=== PATIENT | female | born 1970 | race Hispanic/Latino ===

== ENCOUNTER 2021-03-18 10:05 | Inpatient (IN) | payer OTHER ==
[~2021-03-18] VITALS: Ht 152.4 cm; Wt 68.0 kg
[2021-03-18] MEDS ORDERED: SODIUM CHLORIDE 0.9% 1000ML 1,000 ML IV STA (10:22)
[2021-03-18] MEDS ORDERED: PANTOPRAZOLE 40 MG 10ML VIAL IV STA (10:22)
[2021-03-18 10:44] LABS: BASOPHILS # (AUTO) 0.1 (0.0-0.1); BASOPHILS % 1.1 % (0.0-1.0); EOSINOPHILS # (AUTO) 0.1 (0.0-0.4); EOSINOPHILS % 1.6 % (0.0-6.0); LYMPHOCYTES # (AUTO) 1.9 (1.0-3.2); LYMPHOCYTES % 33.1 % (18.0-39.1); MEAN CORPUSCULAR HEMOGLOBIN 14.1 pg (28-32); MEAN CORPUSCULAR HGB CONC 23.6 g/dL (31-35); MEAN CORPUSCULAR VOLUME 59.8 fL (81-99); MONOCYTES # (AUTO) 0.5 (0.2-0.8); MONOCYTES % 8.4 % (4.4-11.3); NEUTROPHILS # (AUTO) 3.2 (2.1-6.9); NEUTROPHILS % 55.6 % (38.7-80.0); PLATELET COUNT 366 x10e3/uL (140-360); RED BLOOD COUNT 3.61 x10e6/uL (3.6-5.1); RED CELL DISTRIBUTION WIDTH 22.4 % (11.7-14.4)
[2021-03-18 10:52] LABS: HEMATOCRIT 21.6 % (34.2-44.1); HEMOGLOBIN 5.1 g/dL (12.0-16.0)
[2021-03-18 11:09] LABS: ALANINE AMINOTRANSFERASE 13 IU/L (0-55); ALBUMIN/GLOBULIN RATIO 1.1 (0.8-2.0); ALKALINE PHOSPHATASE 103 IU/L (40-150); ANION GAP 11.7 mmol/L (8-16); BLOOD UREA NITROGEN 14 mg/dL (7-26); BUN/CREATININE RATIO 21 (6-25); CALCIUM 8.7 mg/dL (8.4-10.2); CARBON DIOXIDE 25 mmol/L (22-29); CHLORIDE 106 mmol/L (98-107); CREATININE, SERUM 0.67 mg/dL (0.57-1.11); EST GLOMERULAR FILTRATION RATE > 60 ML/MIN (60-); GLUCOSE 114 mg/dL (74-118); POTASSIUM 3.7 mmol/L (3.5-5.1); SODIUM 139 mmol/L (136-145)
[2021-03-18] MEDS ORDERED: ONDANSETRON HCL INJ 2MG/ML 2ML 2 MG/ML VIAL IV PRN (11:15)
[2021-03-18 11:29] LABS: PROTHROMBIN TIME 13.8 seconds (11.9-14.5)
[2021-03-18 11:30] LABS: PARTIAL THROMBOPLASTIN TIME 28.6 seconds (23.8-35.5)
[2021-03-18] MEDS: SODIUM CHLORIDE 0.9% 1000ML 1,000 ML IV SCH ×2 (12:35→21:15)
[2021-03-18] MEDS ORDERED: SODIUM CHLORIDE 0.9% 250ML 250 ML ONE (13:31)
[2021-03-18 13:52] VITALS: BP 132/76
[2021-03-18 13:56] VITALS: BP 132/76
[2021-03-18 14:03] VITALS: BP 136/67
[2021-03-18 17:22] VITALS: BP 116/61
[2021-03-18 20:57] VITALS: BP 128/61
[2021-03-18 22:01] VITALS: BP 128/61
[2021-03-19] VITALS (8 sets, daily range): BP systolic 109–132; BP diastolic 47–57
[2021-03-19 00:48] LABS: % IRON SATURATION 2 % (15-50); IRON 11 ug/dL (50-170); TOTAL IRON BINDING CAPACITY 574 ug/dL (261-478); TRANSFERRIN 410 mg/dL (180-382)
[2021-03-19 01:06] LABS: FERRITIN < 1.00 ng/mL (4.63-204.00)
[2021-03-19] MEDS ORDERED: CYANOCOBALAMIN INJ 1,000 MCG/ML VIAL IM ONE (01:30)
[2021-03-19 05:37] LABS: BASOPHILS # (AUTO) 0.1 (0.0-0.1); BASOPHILS % 1.2 % (0.0-1.0); EOSINOPHILS # (AUTO) 0.1 (0.0-0.4); HEMATOCRIT 28.3 % (34.2-44.1); HEMOGLOBIN 7.8 g/dL (12.0-16.0); LYMPHOCYTES # (AUTO) 2.4 (1.0-3.2); LYMPHOCYTES % 35.9 % (18.0-39.1); MEAN CORPUSCULAR HEMOGLOBIN 18.4 pg (28-32); MEAN CORPUSCULAR HGB CONC 27.6 g/dL (31-35); MEAN CORPUSCULAR VOLUME 66.6 fL (81-99); MONOCYTES # (AUTO) 0.6 (0.2-0.8); MONOCYTES % 9.8 % (4.4-11.3); NEUTROPHILS # (AUTO) 3.3 (2.1-6.9); NEUTROPHILS % 50.8 % (38.7-80.0); PLATELET COUNT 302 x10e3/uL (140-360); RED BLOOD COUNT 4.25 x10e6/uL (3.6-5.1); RED CELL DISTRIBUTION WIDTH 29.1 % (11.7-14.4)
[2021-03-19 06:00] LABS: ALANINE AMINOTRANSFERASE 11 IU/L (0-55); ALBUMIN 3.5 g/dL (3.5-5.0); ALKALINE PHOSPHATASE 89 IU/L (40-150); BLOOD UREA NITROGEN 9 mg/dL (7-26); BUN/CREATININE RATIO 14 (6-25); CALCIUM 8.3 mg/dL (8.4-10.2); CARBON DIOXIDE 27 mmol/L (22-29); CHLORIDE 106 mmol/L (98-107); CREATININE, SERUM 0.64 mg/dL (0.57-1.11); EST GLOMERULAR FILTRATION RATE > 60 ML/MIN (60-); GLUCOSE 92 mg/dL (74-118); SODIUM 140 mmol/L (136-145)
[2021-03-19 06:21] LABS: % IRON SATURATION 4 % (15-50); IRON 18 ug/dL (50-170); TOTAL IRON BINDING CAPACITY 508 ug/dL (261-478); TRANSFERRIN 363 mg/dL (180-382)
[2021-03-19 06:44] LABS: FERRITIN < 1.00 ng/mL (4.63-204.00)
[2021-03-19] MEDS: SODIUM CHLORIDE 0.9% 1000ML 1,000 ML IV SCH ×2 (07:15→17:15)
[2021-03-19] MEDS: CYANOCOBALAMIN INJ 1,000 MCG/ML VIAL IM SCH (09:00)
[2021-03-19] MEDS: IRON SUCROSE 100 MG in SODIUM CHLORIDE 0.9% 100 ML 100 ML IV SCH (09:00)
[2021-03-19] MEDS: PANTOPRAZOLE 40 MG 10ML VIAL IV SCH (09:00)
[2021-03-19 11:55] LABS: BAND NEUTROPHILS % (MANUAL) 3 %; EOSINOPHILS % (MANUAL) 2 % (0-7); LYMPHOCYTES % (MANUAL) 33 % (19-48); MONOCYTES % (MANUAL) 7 % (3.4-9.0); NEUTROPHILS % (MANUAL) 55 % (40-74)
[2021-03-20] VITALS (7 sets, daily range): BP systolic 108–134; BP diastolic 53–63
[2021-03-20] MEDS: SODIUM CHLORIDE 0.9% 1000ML 1,000 ML IV SCH ×2 (04:03→16:56)
[2021-03-20 05:53] LABS: BASOPHILS # (AUTO) 0.1 (0.0-0.1); BASOPHILS % 1.3 % (0.0-1.0); EOSINOPHILS # (AUTO) 0.2 (0.0-0.4); EOSINOPHILS % 2.7 % (0.0-6.0); HEMATOCRIT 29.7 % (34.2-44.1); HEMOGLOBIN 7.9 g/dL (12.0-16.0); LYMPHOCYTES # (AUTO) 2.6 (1.0-3.2); LYMPHOCYTES % 41.4 % (18.0-39.1); MEAN CORPUSCULAR HGB CONC 26.6 g/dL (31-35); MEAN CORPUSCULAR VOLUME 67.8 fL (81-99); MONOCYTES # (AUTO) 0.6 (0.2-0.8); MONOCYTES % 9.6 % (4.4-11.3); NEUTROPHILS # (AUTO) 2.9 (2.1-6.9); NEUTROPHILS % 44.7 % (38.7-80.0); PLATELET COUNT 258 x10e3/uL (140-360); RED BLOOD COUNT 4.38 x10e6/uL (3.6-5.1); RED CELL DISTRIBUTION WIDTH 29.9 % (11.7-14.4)
[2021-03-20 06:11] LABS: ANION GAP 14.8 mmol/L (8-16); BLOOD UREA NITROGEN 7 mg/dL (7-26); BUN/CREATININE RATIO 11 (6-25); CALCIUM 8.2 mg/dL (8.4-10.2); CARBON DIOXIDE 23 mmol/L (22-29); CHLORIDE 107 mmol/L (98-107); CREATININE, SERUM 0.61 mg/dL (0.57-1.11); EST GLOMERULAR FILTRATION RATE > 60 ML/MIN (60-); GLUCOSE 82 mg/dL (74-118); MAGNESIUM 2.2 MG/DL (1.3-2.1); POTASSIUM 3.8 mmol/L (3.5-5.1); SODIUM 141 mmol/L (136-145)
[2021-03-20] MEDS: PANTOPRAZOLE 40 MG 10ML VIAL IV SCH (08:21)
[2021-03-20] MEDS: IRON SUCROSE 100 MG in SODIUM CHLORIDE 0.9% 100 ML 100 ML IV SCH (08:24)
[2021-03-20] MEDS: CYANOCOBALAMIN INJ 1,000 MCG/ML VIAL IM SCH (08:24)
[2021-03-20 09:14] LABS: BAND NEUTROPHILS % (MANUAL) 2 %; EOSINOPHILS % (MANUAL) 2 % (0-7); LYMPHOCYTES % (MANUAL) 40 % (19-48); MONOCYTES % (MANUAL) 8 % (3.4-9.0); NEUTROPHILS % (MANUAL) 48 % (40-74)
[2021-03-20] MEDS ORDERED: LACTULOSE SYRUP 20 GM/30 ML UDC PO PRN (11:15)
[2021-03-20] MEDS: DOCUSATE SODIUM 100 MG CAP PO SCH ×3 (11:53→21:55)
[2021-03-20] MEDS: POLYETHYLENE GLYCOL 3350 17 GM PACK PO SCH (16:56)
[2021-03-21] VITALS (8 sets, daily range): BP systolic 115–123; BP diastolic 45–56
[2021-03-21] MEDS: SODIUM CHLORIDE 0.9% 1000ML 1,000 ML IV SCH ×2 (01:41→11:15)
[2021-03-21] MEDS ORDERED: ONDANSETRON HCL 4 MG ORAL DISINTEGRATING TAB PO PRN (08:00)
[2021-03-21] MEDS: POLYETHYLENE GLYCOL 3350 17 GM PACK PO SCH ×2 (09:00→17:32)
[2021-03-21] MEDS: DOCUSATE SODIUM 100 MG CAP PO SCH ×3 (09:00→21:47)
[2021-03-21] MEDS: CYANOCOBALAMIN INJ 1,000 MCG/ML VIAL IM SCH (09:03)
[2021-03-21] MEDS: PANTOPRAZOLE 40 MG 10ML VIAL IV SCH (09:04)
[2021-03-21] MEDS: IRON SUCROSE 100 MG in SODIUM CHLORIDE 0.9% 100 ML 100 ML IV SCH (09:04)
[2021-03-21] MEDS ORDERED: PROPOFOL IV EMULSION 10 MG/ML 20 ML VIAL ONE (12:19)
[2021-03-21] MEDS ORDERED: LIDOCAINE HCL 2% LOCAL INJ 5 ML SDV VIAL INJ ONE (12:19)
[2021-03-22 00:52] VITALS: BP 119/59
[2021-03-22 05:01] VITALS: BP 105/48
[2021-03-22 05:11] LABS: BASOPHILS # (AUTO) 0.1 (0.0-0.1); EOSINOPHILS # (AUTO) 0.1 (0.0-0.4); EOSINOPHILS % 1.9 % (0.0-6.0); HEMATOCRIT 29.2 % (34.2-44.1); HEMOGLOBIN 7.9 g/dL (12.0-16.0); LYMPHOCYTES % 29.1 % (18.0-39.1); MEAN CORPUSCULAR HEMOGLOBIN 18.6 pg (28-32); MEAN CORPUSCULAR HGB CONC 27.1 g/dL (31-35); MEAN CORPUSCULAR VOLUME 68.9 fL (81-99); MONOCYTES # (AUTO) 0.6 (0.2-0.8); NEUTROPHILS # (AUTO) 4.1 (2.1-6.9); PLATELET COUNT 221 x10e3/uL (140-360); RED BLOOD COUNT 4.24 x10e6/uL (3.6-5.1); RED CELL DISTRIBUTION WIDTH 31.8 % (11.7-14.4)
[2021-03-22 05:28] LABS: ANION GAP 12.6 mmol/L (8-16); BLOOD UREA NITROGEN 8 mg/dL (7-26); BUN/CREATININE RATIO 13 (6-25); CALCIUM 8.2 mg/dL (8.4-10.2); CARBON DIOXIDE 26 mmol/L (22-29); CHLORIDE 106 mmol/L (98-107); CREATININE, SERUM 0.62 mg/dL (0.57-1.11); EST GLOMERULAR FILTRATION RATE > 60 ML/MIN (60-); GLUCOSE 85 mg/dL (74-118); POTASSIUM 3.6 mmol/L (3.5-5.1); SODIUM 141 mmol/L (136-145)
[2021-03-22 06:50] LABS: HYPOCHROMASIA MODERATE
[2021-03-22 06:51] LABS: ANISOCYTOSIS MARKED; MICROCYTOSIS MODERATE; POLYCHROMASIA FEW
[2021-03-22 06:52] LABS: OVALOCYTES FEW; PLATELET ESTIMATE ADEQUATE; PLATELET MORPHOLOGY COMMENT NORMAL; RBC MORPHOLOGY COMMENT ABNORMAL
[2021-03-22] MEDS ORDERED: ACETAMINOPHEN 325 MG TAB PO PRN (07:45)
[2021-03-22] MEDS ORDERED: DIPHENHYDRAMINE HCL 25 MG CAP PO PRN (07:45)
[2021-03-22] MEDS ORDERED: KETOROLAC TROMETHAMINE 30 MG/ML VIAL IM PRN (07:45)
[2021-03-22] MEDS ORDERED: HYDROCODONE/APAP 10MG-325MG TAB PO PRN (07:45)
[2021-03-22] MEDS ORDERED: ONDANSETRON HCL INJ 2MG/ML 2ML 2 MG/ML VIAL IV PRN (07:45)
[2021-03-22] MEDS ORDERED: DOCUSATE SODIUM 100 MG CAP PO PRN (07:45)
[2021-03-22] MEDS ORDERED: LACTATED RINGER'S 1,000 ML IV SCH (09:00)
[2021-03-22 09:10] VITALS: BP 113/61
[2021-03-22] MEDS: DOCUSATE SODIUM 100 MG CAP PO SCH ×2 (09:10→15:00)
[2021-03-22] MEDS: IRON SUCROSE 100 MG in SODIUM CHLORIDE 0.9% 100 ML 100 ML IV SCH (09:10)
[2021-03-22] MEDS: PANTOPRAZOLE 40 MG 10ML VIAL IV SCH (09:10)
[2021-03-22] MEDS: CYANOCOBALAMIN INJ 1,000 MCG/ML VIAL IM SCH (09:10)
[2021-03-22] MEDS: POLYETHYLENE GLYCOL 3350 17 GM PACK PO SCH (09:11)
[2021-03-22 11:33] VITALS: BP 114/53
[2021-03-22 14:13] VITALS: BP 113/61
[2021-03-22] MEDS ORDERED: FERROUS SULFAT325 MG PO (15:50)
[2021-03-22] MEDS ORDERED: ASCORBIC ACID500 M2 PO (15:51)
[2021-03-22 16:24] VITALS: BP 122/57
[2021-03-22] MEDS ORDERED: ZOLPIDEM TARTRATE 5 MG TAB PO PRN (21:00)
== END 2021-03-22 16:58 | disposition home or self-care (01) | DRG 812 ==
LOC: ER 10:08 → ERHOLD 11:49 → MED/SURG2 12:18 → OBSVTOIN 03-19 18:49
PROVIDERS: ADMIT Internal Medicine; ATTEND Internal Medicine
PROC: 30233N1 Transfusion of Nonautologous Red Blood Cells into Peripheral Vein, Percutaneous Approach (ICD-10-PCS; 2021-03-18)
PROC: 0DB68ZX Excision of Stomach, Via Natural or Artificial Opening Endoscopic, Diagnostic (ICD-10-PCS; 2021-03-21)
PROC: 0DB78ZZ Excision of Stomach, Pylorus, Via Natural or Artificial Opening Endoscopic (ICD-10-PCS; principal; 2021-03-21 11:30)
DX: D50.9 Iron deficiency anemia, unspecified (principal); K20.90 Esophagitis, unspecified without bleeding; J33.8 Other polyp of sinus; K29.70 Gastritis, unspecified, without bleeding; N92.4 Excessive bleeding in the premenopausal period; E53.8 Deficiency of other specified B group vitamins
CPT/HCPCS: 36415; 43239; 80048; 80053; 82270; 82607; 82728; 82746; 83540; 83735; 84100; 84466; 84702; 85025; 85045; 85610; 85730; 86850; 86900; 86920; 88305; 88312; 96360; 96361; 99284; G0378; J1756; J2001; J3420; J7030; J7050; P9016; U0002